=== PATIENT | male | born 1985 | race Caucasian/White ===

== ENCOUNTER 2020-09-14 09:22 | Emergency (ER) | payer OTHER ==
[~2020-09-14] VITALS: Ht 175.3 cm; Wt 92.5 kg
[2020-09-14 09:25] VITALS: BP 131/85
[2020-09-14] MEDS ORDERED: KETOROLAC 30 MG/ML VIAL IM ONE (09:40)
[2020-09-14] MEDS ORDERED: IBUP-2213 PO (09:44)
[2020-09-14] MEDS ORDERED: AMOX1TAB8 PO (09:44)
== END 2020-09-14 09:51 | disposition home or self-care (01) ==
LOC: MED 09:22
DX: S02.5XXA Fracture of tooth (traumatic), initial encounter for closed fracture (principal); K04.7 Periapical abscess without sinus; Z79.899 Other long term (current) drug therapy; X58.XXXA Exposure to other specified factors, initial encounter; Y93.89 Activity, other specified; Y92.89 Other specified places as the place of occurrence of the external cause; Y99.8 Other external cause status
CPT/HCPCS: 96372; 99283; J1885